=== PATIENT | female | born 2000 | race African-American/Black ===

== ENCOUNTER 2022-05-05 11:04 | Outpatient (CLI) | payer MEDICAID, SELFPAY | END 2022-05-05 11:05 | disposition home or self-care (01) | PROVIDERS: PCP Family Medicine; Visit Provider Nurse Practitioner Family | DX: L94.2 Calcinosis cutis (principal); M33.02 Juvenile dermatomyositis with myopathy; M06.9 Rheumatoid arthritis, unspecified | CPT/HCPCS: 11900; J3490 ==

== ENCOUNTER 2022-05-24 08:21 | Outpatient (CLI) | payer MEDICAID, SELFPAY | END 2022-05-24 08:22 | disposition home or self-care (01) | LOC: WOUND 08:21 | PROVIDERS: PCP Family Medicine; Visit Provider Nurse Practitioner Family | DX: L94.2 Calcinosis cutis (principal); M33.02 Juvenile dermatomyositis with myopathy; M06.9 Rheumatoid arthritis, unspecified | CPT/HCPCS: 11900; J3490 ==

== ENCOUNTER 2022-06-03 08:30 | Outpatient (RCR) | payer MEDICAID, SELFPAY ==
[2022-06-03 08:41] VITALS: BP 113/75; PULSE 89; RESP 16; TEMP 36.1; O2SAT 99
[2022-06-03] MEDS: HEPARIN 500 UNIT/5 ML SYRINGE IVF (15:47)
[2022-06-03] MEDS: SODIUM CHLORIDE 0.9 % (FLUSH) 10 ML SYRINGE IVF (15:47)
[2022-06-03] MEDS: 5 % DEXTROSE 250 ML IV (15:47)
== END 2022-06-05 23:59 | disposition home or self-care (01) ==
LOC: CCIC 08:30
PROVIDERS: Visit Provider Family Medicine
DX: M33.00 Juvenile dermatomyositis, organ involvement unspecified (principal)
CPT/HCPCS: 96365; 96366; J1561; J1642; J7050

== ENCOUNTER 2022-06-07 08:48 | Outpatient (CLI) | payer MEDICAID, SELFPAY | END 2022-06-07 08:49 | disposition home or self-care (01) | LOC: WOUND 08-17 10:35 | PROVIDERS: PCP Family Medicine; Visit Provider Nurse Practitioner Family | DX: L94.2 Calcinosis cutis (principal); M33.02 Juvenile dermatomyositis with myopathy; M06.9 Rheumatoid arthritis, unspecified | CPT/HCPCS: 11900; J3490 ==

== ENCOUNTER 2022-06-28 08:26 | Outpatient (CLI) | payer MEDICAID, SELFPAY | END 2022-06-28 08:27 | disposition home or self-care (01) | LOC: WOUND 08:26 | PROVIDERS: Visit Provider Nurse Practitioner Family | DX: L94.2 Calcinosis cutis (principal); M33.02 Juvenile dermatomyositis with myopathy; M06.9 Rheumatoid arthritis, unspecified | CPT/HCPCS: 11900; J3490 ==

== ENCOUNTER 2022-07-05 08:30 | Outpatient (RCR) | payer MEDICAID, SELFPAY ==
--- OUTSIDE RECORDS SUMMARY | 2022-04-29 09:15 | XMS_ITS | Continuity of Care Document ---
:2000 Author Care Team Providers Name Role Phone DO Delma Prasad Primary Care Physician DOUG Valero Attending Physician Allergies, Adverse Reactions, Alerts Allergen Type Severity Reaction Last Updated Verified Status Adhesive Allergy Unknown December Yes Active 2018 Selenium Allergy Severe rash August Yes Active sulfide 2019 Social History Smoking Status Unknown if ever smoked Additional Data Assigned Sex Female Medications Medication Status Dose Units Route Directions Qty Days Start End Ins tructions Date Date Amitriptyline Active 25 MG PO Bedtime 30 ua Hcl 2021 8:47am Cholecalcifer Active 2000 UNIT PO Daily 100 ol (Vitamin D) 2,000 Unit TAB Clobetasol Active 1 TONE TOP Twice A Day 15 AP PLY Propionate SPARINGLY TO (Clobetasol AFFECTED AREA Propionate Cream) 0.05 % CRE Cyclobenzapri Active 5 MG PO as needed ne Hcl Escitalopram Active 10 MG PO Daily Oxalate (Lexapro) 10 Mg TAB Fish Oil Active 1000 MG PO Daily 100 Hydrocortison Active 1 TONE TOP Twice A Day 30 e (Hydrocortiso ne Ointment) 2.5 % OIN Hydroxyzine Active 25 MG PO Daily as Pamoate needed Lamotrigine Active 100 MG PO Daily 30 Februar y 2021 8:47am Lisinopril Active 10 MG PO Daily Loratadine Active 10 MG PO Daily (Claritin) 10 Mg TAB Medroxyproges Active 1 ML IM Every 3 terone Minutes Acetate (Depo-Provera Contraceptive ) 150 Mg/Ml INJ Meloxicam Active 15 MG PO Daily as (Mobic) 15 Mg needed TAB Methotrexate Active 15 MG PO Every 7 Sodium Days Metoprolol Active 25 MG PO Daily 60 Tartrate Multivitamins Active 1 TAB PO Daily (Multivitamin /Minerals) TAB Omeprazole Active 20 MG PO Daily Tramadol Hcl Active 100 MG PO Daily as needed Tretinoin Active 1 TONE TOP Bedtime 20 (Tretinoin Cream) 0.1 % CRE Amitriptyline Discontin 50 MG PO Bedtime 30 Februa Hcl ued ry 2021 8:47am Cetirizine Discontin 10 MG PO Daily May Hcl ued 2019 8:01am Cholecalcifer Discontin 2000 UNIT PO Daily May ol (Vitamin ued , D) 2,000 Unit 2019 TAB 8:01am Diclofenac Discontin GRAMS TOP Twice A Day May Sodium ued as needed , (Voltaren) 1 2019 % GEL 8:02am Escitalopram Discontin 5 MG PO Daily 04 April Oxalate ued , (Lexapro) 5 2021 Mg TAB 8:53am Lactic Acid Discontin 12 % EX Daily Februa (Ammonium ued Lactate) , (Ammonium 2021 Lactate) 12 % 8:47am CRE Lamotrigine Discontin 25 MG PO Daily Februa ued ry 2021 8:47am Methotrexate Discontin 15 MG PO Every 7 April Sodium ued Days 2020 9:54am Methotrexate Discontin 12.5 MG PO Qweekly May Sodium ued 2019 8:35am Methotrexate Discontin 10 MG PO Every 7 May Sodium ued Days 2019 8:35am Metoprolol Discontin 25 MG PO Twice A Day 60 Febru a Tartrate ued ry 2021 8:47am Prednisone Discontin 20 MG PO Daily April ued 2020 9:54am Prednisone Discontin 20 MG PO Daily June ued 2019 8:16am Triamcinolone Discontin MG EX Twice A Day Fe brua Acetonide ued as needed ry (Topic , (Kenalog) 2021 0.147 Mg/Gm 8:47am AER Relevant Diagnostic Tests and/or Laboratory Data Laboratory Results Test Date/Time Result Interpretation Reference Result Comment Performing Range Site White Blood March 18, 9.40 5.00-10.00 [facility] Lab Count 2021 [address] [facility] 8:28am [facility] [address] Red Blood Count March 18, 4.55 3.90-5.03 [facility] 2021 [address] [facility] 8:28am [facility] [address] Hemoglobin March 18, 12.1 12.0-15.5 [facility] Lab 2021 [address] [facility] 8:28am [place] [address] Hematocrit March 18, 37.9 34.9-44.5 [facility] Lab 2021 [address] [facility] 8:28am [place] [address] Mean March 18, 83 82-98 [facility] Corpuscular [address] [facility] Volume 8:28am [place] [address] Mean March 18, 27 27-34 [facility] Corpuscular [address] [facility] Hemoglobin 8:28am [facility] [place] [address] Mean March 18, 32 32-36 [facility] Corpuscular [address] [facility] Hemoglobin 8:28am [facility] [place] [address] Concent Platelet Count March 18, 464 150-450 [facility] Lab 2021 1999 [facility] 8:28am [place] [address] RDW Coefficient March 18, 15.5 11.5-15.3 [facility] Lab of Variation 2021 1999 [facility] 8:28am [place] [address] Neutrophils (%) March 18, 53.2 50.0-70.0 [facility] (Auto) 2021 1999 [facility] 8:28am [place] [address] Lymphocytes (%) March 18, 37.7 25.0-45.0 [facility] (Auto) 2021 [address] [facility] 8:28am [place] [address] Monocytes (%) March 18, 6.0 0.00-11.0 [facility] (Auto) 2021 [address] [facility] 8:28am [place] [address] Eosinophils (%) March 18, 2.2 0.0-7.0 [facility] (Auto) 2021 [address] [facility] 8:28am [place] [address] Basophils (%) March 18, 0.5 0.0-3.0 [facility] (Auto) 2021 [address] [facility] 8:28am [place] [address] Immature March 18, 0.4 [facility] Granulocyte % 2021 1999 [facility] (Auto) 8:28am [place] [address] Neutrophils # March 18, 5.00 1.70-7.00 [facility] (Auto) 2021 [address] [facility] 8:28am [place] [address] Lymphocytes # March 18, 3.54 0.90-2.90 [facility] (Auto) 2021 [address] [facility] 8:28am [place] [address] Monocytes # March 18, 0.56 0.30-0.90 [facility] (Auto) 2021 [address] [facility] 8:28am [place] [address] Eosinophils # March 18, 0.21 0.00-0.50 [facility] (Auto) 2021 [address] [facility] 8:28am [place] [address] Basophils # March 18, 0.05 0.00-0.20 [facility] (Auto) 2021 [address] [facility] 8:28am [place] [address] Immature March 18, 0.04 [facility] Granulocyte # 2021 1999 [facility] (Auto) 8:28am [facility] [address] Erythrocyte March 18, 30 2-20 [facility] Sedimentation 2021 [address] [facility] Rate 8:28am [facility] [address] Creatinine March 18, 0.4 0.5-1.5 [facility] Lab 2021 [address] [facility] 8:28am [facility] [address] Total Protein March 18, 8.0 6.0-8.3 The use of [facility] 2021 Eltrombopag, a [address] [facility] 8:28am bone [place] [address] stimulant used to treat thrombocytopenia and aplastic anemia, interferes with this measurement of total protein. A 5% bias has been observed. Albumin March 18, 4.4 3.3-5.0 [facility] 2021 [address] [facility] 8:28am [facility] [address] Total Bilirubin March 18, 0.3 0.1-1.5 [facility] 2021 [address] [facility] 8:28am [facility] [address] Direct March 18, 0.2 0.0-0.5 [facility] Bilirubin 2021 [address] [facility] 8:28am [facility] [address] Aspartate Amino March 18, 26 12-35 [facility] Transf 2021 1999 [facility] (AST/SGOT) 8:28am [facility] [place] [address] Alanine March 18, 23 4-35 [facility] Aminotransferas 2021 [address] [facility] e (ALT/SGPT) 8:28am [facility] [address] Alkaline March 18, 92 40-150 [facility] Phosphatase [address] [facility] 8:28am [facility] [address] Total Creatine March 18, 72 41-117 [facility] Kinase 2021 [address] [facility] 8:28am [facility] [address] C-Reactive March 18, 1.40 0.5-1.0 [facility] Protein 2021 [address] [facility] 8:28am [facility] [address] Insurance Providers Guarantor Nereida Welch Address [address] [address] Contact Info. Home Phone: Payer Policy Id Coverage Id Subscriber's Subscriber Id Effective E xpiration Name Date Date [facility] [id number] Nereida Weclh Medicaid Plan Encounters Encounter Location(s) Arrival/Admit Date Discharge/Depart Date Provider(s) Registered [place] April 19, 2022 Tiffanie Alvarez MD [facility] 6:55am Registered [place] April 18, 2022 Maris Prasad ra [facility] 8:12am L DO Departed Clinic [place] April 07, 2022 April 07, 2022 5:00pm [facility] 3:05pm [employer] [facility] Plan of Treatment Future Tests Future scheduled test information is unavailable Pending Tests Pending diagnostic test information is unavailable Future Visits Future appointment information is unavailable Referrals to Other Providers Referral information is unavailable Future Procedures Future procedure information is unavailable Future Medications Future medication information is unavailable Patient Instructions Blood & Blood Components (DC)
--- NOTE | 2022-05-30 10:31 | ONC.NURNOTE ---
Authorization: User: Lesley Smith Date: 10/24/19 15:01 Type: Eligibility Determination Note... Prior authorization obtained for [employer] ([id number]) valid from 10/24/2019-10/24/2022. Auth # [id number]
[2022-07-05 08:20] VITALS: BP 114/78; PULSE 98; RESP 14; TEMP 36.6; O2SAT 99
[2022-07-05 08:58] LABS: Basophils Absolute Auto 0.04 K/uL (0.00-0.30); Basophils Percent Auto 0.5 % (0.0-3.0); Eosinophils Absolute Auto 0.18 K/uL (0.00-0.50); Eosinophils Percent Auto 2.1 % (0.0-7.0); Hematocrit 35.2 % (33.0-51.0); Hemoglobin* 11.2 gm/dL (12.0-16.0); Immature Granulocytes Abs Auto 0.03 K/uL (0.00-0.30); Lymphocytes Absolute Auto 2.51 K/uL (0.90-2.90); Lymphocytes Percent Auto 29.7 % (20-44); Mean Corpuscular HGB Conc 32 gm/dL (32-36); Mean Corpuscular Hemoglobin 26 pg (26-34); Mean Corpuscular Volume 82 fL (80-100); Monocytes Percent Auto 7.1 % (0.0-11.0); Neutrophils Absolute Auto 5.08 K/uL (1.7-7.0); Neutrophils Percent Auto 60.2 % (42.0-72.0); Platelet Count* 402 K/uL (140-440); Red Blood Count 4.29 m/uL (4.00-5.20); White Blood Count* 8.44 K/uL (4.50-11.00)
[2022-07-05 09:01] LABS: Slide Review Reflex No
[2022-07-05 09:11] LABS: Albumin* 4.1 g/dL (3.3-5.0)
[2022-07-05 09:13] LABS: Creatinine* 0.5 mg/dL (0.5-1.5); Estimated Glomerular Filt Rate 136 ml/min
[2022-07-05 09:14] LABS: Aspartate Amino Transferase* 23 U/L (12-35); Bilirubin Direct* 0.3 mg/dL (0.0-0.5); Bilirubin Total* 0.4 mg/dL (0.1-1.5); Total Protein* 7.7 g/dL (6.0-8.3)
[2022-07-05 09:15] LABS: Alanine Aminotransferase* 24 U/L (4-35); Alkaline Phosphatase* 93 U/L (40-150); Creatine Kinase* 97 U/L (41-117)
[2022-07-05 09:17] LABS: C Reactive Protein* 1.7 mg/dL (0.5-1.0)
[2022-07-05 09:32] LABS: Erythrocyte SedimentationRate* 39 mm/hr (2-20)
[2022-07-05 09:35] VITALS: BP 113/75; PULSE 79; RESP 14; TEMP 36.8; O2SAT 99
[2022-07-05 10:30] VITALS: BP 109/72; PULSE 89; RESP 14; TEMP 36.6; O2SAT 98
[2022-07-05] MEDS: 5 % DEXTROSE 250 ML IV (13:12)
[2022-07-05] MEDS: SODIUM CHLORIDE 0.9 % (FLUSH) 10 ML SYRINGE IVF (13:12)
[2022-07-05] MEDS: HEPARIN 500 UNIT/5 ML SYRINGE IVF (13:12)
--- NOTE | 2022-07-05 13:13 | ONC.NURNOTE ---
took own tylenol and benadryl 1/2 hr before treatment.
== END 2023-05-24 11:15 | disposition home or self-care (01) ==
PROVIDERS: PCP Family Medicine; Visit Provider Family Medicine
DX: M25.552 Pain in left hip (principal); M33.00 Juvenile dermatomyositis, organ involvement unspecified; M25.673 Stiffness of unspecified ankle, not elsewhere classified; M25.579 Pain in unspecified ankle and joints of unspecified foot; M24.552 Contracture, left hip; Z74.09 Other reduced mobility; R53.1 Weakness; Z51.89 Encounter for other specified aftercare
CPT/HCPCS: 36415; 36591; 80076; 82550; 82565; 85025; 85651; 86140; 96365; 96366; 97110; 11900; J1561; J1642; J3490; J7050

== ENCOUNTER 2022-08-12 08:30 | Outpatient (RCR) | payer BC, MEDICAID, SELFPAY ==
--- NOTE | 2022-08-11 14:39 | ONC.NURNOTE ---
Authorization: User: Lesley Smith ? Date: 10/24/19 15:01? Type: Eligibility Determination Note... Prior authorization obtained for [employer] ([id number]) valid from 10/24/2019-10/24/2022. Auth # [id number] Initialized on 05/30/22 10:31 - END OF NOTE
[2022-08-12 08:30] VITALS: BP 131/88; PULSE 94; RESP 18; TEMP 36.9; O2SAT 98
[2022-08-12 08:35] VITALS: BP 131/88; PULSE 94; RESP 18; TEMP 36.9; O2SAT 94
--- NOTE | 2022-08-12 13:30 | ONC.NURNOTE ---
Pt here for Gamunex-C infusion. She notes she recently completed 2 weeks of Amoxicillin on 08/02 for Strep throat. She immediately began a 10-day steroid taper on 08/03 that will complete tomorrow, per Dr. Gautam Noble, [employer], for joint pain/small rheumatologic flare. She is feeling well now. Pt has recently moved to [place] and is set up [place] receive future [place] [facility] [place]. Noble. Pt to call [facility] if any further appts needed.
--- NOTE | 2022-08-25 14:50 | ONC.NURNOTE ---
faxed and discussed [facility] infusion routine with [facility]. gave her our direct number. incase she has any further questions. her direct number is [phone]
== END 2022-11-26 23:59 | disposition home or self-care (01) ==
LOC: CCIC 08:30
PROVIDERS: Visit Provider Family Medicine
DX: M33.00 Juvenile dermatomyositis, organ involvement unspecified (principal)
CPT/HCPCS: 96365; 96366; 96413; 96415; J1561